=== PATIENT | female | born 1995 | race Caucasian/White ===

== ENCOUNTER 2021-03-23 20:08 | Emergency (ER) | payer BC, OTHER ==
--- NOTE | 2021-03-23 21:23 | EDM.PDOC ---
ED HPI GENERAL MEDICAL PROBLEM - General Chief Complaint: Upper Extremity Injury/Pain Stated Complaint: FINGER INJURY Time Seen by Provider: 03/23/21 20:19 Source of Information: Reports: Patient, RN Notes Reviewed History Limitations: Reports: No Limitations - History of Present Illness INITIAL COMMENTS - FREE TEXT/NARRATIVE: Patient is a 25-year-old female presenting to the emergency department with complaints of fingernail injury to her left finger. Reports she was playing basketball and her acrylic fingernail got bent backwards. It is still attached at the nailbed but is otherwise detached. They trimmed the nail down prior to coming to ER. Left Finger-Little Pain Score (Numeric/FACES): 6 - Related Data Allergies Allergy/AdvReac Type Severity Reaction Status Date / Time shellfish derived Allergy Anaphylactic Verified 03/23/21 20:23 Shock Home Meds: Home Meds Celecoxib [CeleBREX] 200 mg PO DAILY 03/23/21 [History] Levonorgestrel/Ethin.estradiol [Aviane-28 Tablet] 1 tab PO DAILY 03/23/21 [History] Past Medical History HEENT History: Reports: Other (See Below) Other HEENT History: wears glasses/contacts Musculoskeletal History: Reports: Fracture - Past Surgical History Head Surgeries/Procedures: Reports: None Musculoskeletal Surgical History: Reports: Arthroscopic Knee Other Musculoskeletal Surgeries/Procedures:: hx surgery to left hand for fx, hx left knee arthroscopy Social & Family History - Tobacco Use Tobacco Use Status *Q: Never Tobacco User - Caffeine Use Caffeine Use: Reports: Coffee - Recreational Drug Use Recreational Drug Use: No Review of Systems - Review of Systems Review Of Systems: Comprehensive ROS is negative, except as noted in HPI. ED EXAM, GENERAL - Physical Exam Exam: See Below Exam Limited By: No Limitations General Appearance: Alert, WD/WN, No Apparent Distress Respiratory/Chest: No Respiratory Distress, Lungs Clear, Normal Breath Sounds, No Accessory Muscle Use, Chest Non-Tender Cardiovascular: Normal Peripheral Pulses, Regular Rate, Rhythm, No Edema, No Gallop, No JVD, No Murmur, No Rub Extremities: Other (Loose fingernail on the left fifth finger. Nail is still attached at the nailbed. No active bleeding.) Course - Vital Signs Last Recorded V/S: Last Vital Signs Temp 98.1 F 03/23/21 20:18 Pulse 93 03/23/21 20:18 Resp 20 03/23/21 20:18 BP 132/85 03/23/21 20:18 Pulse Ox 98 03/23/21 20:18 - Re-Assessments/Exams Free Text/Narrative Re-Assessment/Exam: Patient is a 25-year-old female presenting to the emergency department with complaints of injury to her fingernail on her left fifth finger. She has acrylics on and reports that she has not had a chance to trim them down. She was playing basketball and the ball hit the nail, bending it backwards. It is still connected at the nailbed. Fingernail was further trimmed so that it is flush with the fingertip. Discussed with patient that we will leave the fingernail in place to protect the nailbed and not further damage the nail matrix. She should keep it covered to prevent nail from getting snagged. Soaking it in soapy warm water twice daily and then keep it covered. As the nail grows out she may begin to trim it. Discussed return precautions. Discharge instructions as documented. Departure - Departure Time of Disposition: 21:21 Disposition: Home, Self-Care 01 Condition: Good Clinical Impression: Fingernail avulsion, partial Qualifiers: Encounter type: initial encounter Qualified Code(s): S61.309A - Unspecified open wound of unspecified finger with damage to nail, initial encounter - Discharge Information *PRESCRIPTION DRUG MONITORING PROGRAM REVIEWED*: No *COPY OF PRESCRIPTION DRUG MONITORING REPORT IN PATIENT HAYDEE: No Instructions: Nail Avulsion Referrals: PCP,Not In Area [Primary Care Provider] - Forms: ED Department Discharge Additional Instructions: Keep the fingernail covered to avoid it becoming snagged. Soak finger nail in warm soap and water twice daily to keep it clean. As the nail begins to grow out, you may trim it. Do not pull the nail off. Use Tylenol and ibuprofen as needed for discomfort. Return to ER as needed. Sepsis Event Note (ED) - Evaluation Sepsis Screening Result: No Definite Risk - Focused Exam Vital Signs: Vital Signs Temp Pulse Resp BP Pulse Ox 03/23/21 20:18 98.1 F 93 20 132/85 98
== END 2021-03-23 21:29 | disposition home or self-care (01) ==
LOC: JD.ED 20:08
DX: S61.307A Unspecified open wound of left little finger with damage to nail, initial encounter (principal); Z91.013 Allergy to seafood; Z79.899 Other long term (current) drug therapy; X50.9XXA Other and unspecified overexertion or strenuous movements or postures, initial encounter; Y93.67 Activity, basketball
CPT/HCPCS: 99283